=== PATIENT | female | born 1985 | race Caucasian/White ===

== ENCOUNTER 2021-05-14 13:30 | Emergency (ER) | payer BC, OTHER ==
[~2021-05-14] VITALS: Ht 180.3 cm; Wt 163.3 kg
[2021-05-14 13:36] VITALS: BP 115/87
--- NOTE | 2021-05-14 13:44 | ED Lower Extremity ---
General Chief Complaint: Lower Extremity Stated Complaint: RT FOOT INJ History of Present Illness Date Seen by Provider: May 14, 2021 Time Seen by Provider: 13:41 Initial Comments 36-year-old female presents with right foot pain. States she was walking this morning and her foot got caught in the cord and she excellently hit her foot on a vacuum. Since then no pain with weightbearing. No swelling or bruising noted. No other injury or complaint. Allergies and Home Medications Patient Home Medication List Home Medication List Reviewed: Yes Ibuprofen (Ibuprofen) 800 Mg Tablet, 800 MG PO Q8H PRN for PAIN Prescribed by: MARIANO GALVEZ on 05/14/21 1415 Review of Systems Constitutional: No chills, No fever Musculoskeletal: see HPI; No joint pain; other (R lateral foot pain) Skin: No change in color, No rash Psychiatric/Neurological: Denies Numbness, Denies Weakness Past Kbmjhvk-Oszshp-Bxjgpt Hx Patient Social History Tobacco Use?: No Physical Exam Vital Signs Vital Signs - First Documented 05/14/21 13:36 Temp 36.9 Pulse 93 Resp 16 B/P (MAP) 115/87 (96) Pulse Ox 99 O2 Delivery Room Air Capillary Refill : Height, Weight, BMI Height: '" Weight: lbs. oz. kg; BMI Method: General Appearance: WD/WN, no apparent distress Hips: bilateral hip non-tender, bilateral hip normal inspection, bilateral hip normal range of motion, bilateral hip no evidence of injury Legs: bilateral leg non-tender, bilateral leg normal inspection, bilateral leg normal range of motion, bilateral leg no evidence of injury Knees: bilateral knee non-tender, bilateral knee normal inspection, bilateral knee normal range of motion, bilateral knee no evidence of injury Ankles: bilateral ankle non-tender, bilateral ankle normal inspection, b ilateral ankle normal range of motion, bilateral ankle no evidence of injury Feet: right foot normal inspection, right foot bone tenderness (5th MT), right foot limited range of motion, right foot pain, right foot soft tissue tenderness Neurologic/Tendon: normal sensation, no evidence tendon injury Progress/Results/Core Measures Results/Orders My Orders Orders - MARIANO GALVEZ DO Foot 3 View Right (05/14/21 13:41) Vital Signs/I&O 05/14/21 13:36 Temp 36.9 Pulse 93 Resp 16 B/P (MAP) 115/87 (96) Pulse Ox 99 O2 Delivery Room Air Diagnostic Imaging Diagonstic Imaging: Xray Comments Date of Exam:05/14/21 FOOT 3 VIEW RIGHT INDICATION: Right foot pain. AP, oblique, and lateral views of the right foot are obtained. FINDINGS: No acute fracture or acute bony abnormality is seen. Joint spaces appear unremarkable. IMPRESSION: Negative right foot. Dictated on workstation # [id number] Dict: 05/14/21 1421 Trans: 05/14/21 1425 [id number] Interpreted by: MEAGAN JAMA MD Electronically signed by: Departure Impression Primary Impression: Sprain or strain of foot Disposition: HOME, SELF-CARE Condition: Stable Departure-Patient Inst. Decision time for Depature: 14:14 Referrals: INA MORAN MD (PCP/Family) Primary Care Physician Patient Instructions: Sprain (DC) Add. Discharge Instructions: follow up with your PCP in 1 week if not improving to consider repeat x-rays ambulate as tolerated. Use crutches or cane to assist All discharge instructions reviewed with patient and/or family. Voiced understanding. Scripts Ibuprofen (Ibuprofen) 800 Mg Tablet 800 MG PO Q8H PRN for PAIN, #30 TAB 0 Refills Prov: MARIANO GALVEZ DO 05/14/21 MARIANO GALVEZ DO May 14, 2021 13:44
[2021-05-14] MEDS ORDERED: IBUP-1780 PO (14:15)
--- NOTE | 2021-05-14 14:25 | Diagnostic Imaging Report ---
INDICATION: Right foot pain. AP, oblique, and lateral views of the right foot are obtained. FINDINGS: No acute fracture or acute bony abnormality is seen. Joint spaces appear unremarkable. IMPRESSION: Negative right foot. Dictated by: Dictated on workstation # [id number]
== END 2021-05-14 14:32 | disposition home or self-care (01) ==
LOC: ER FS 13:32
DX: S93.601A Unspecified sprain of right foot, initial encounter (principal); W22.8XXA Striking against or struck by other objects, initial encounter
CPT/HCPCS: 73630

== ENCOUNTER → 2023-03-28 | Outpatient (CLI) | payer BC ==
[~2023-03-28] MED LIST: IBUP-1780 PO
--- NOTE | 2023-03-28 16:38 | Diagnostic Imaging Report ---
INDICATION: Knee pain. EXAMINATION: Three views were obtained. FINDINGS: The alignment is normal. There is no fracture or dislocation. Soft tissues are unremarkable. There are very minimal degenerative changes. IMPRESSION: Minimal osteoarthritic change, otherwise unremarkable. Dictated by: Dictated on workstation # [id number]
== END ==
LOC: RAD FS 13:59
PROVIDERS: ATTEND Registered Nurse Emergency
DX: M25.561 Pain in right knee (principal); L25.5 Unspecified contact dermatitis due to plants, except food
CPT/HCPCS: 73562